=== PATIENT | female | born 1985 | race Caucasian/White ===

== ENCOUNTER 2017-10-31 13:20 | Emergency (ER) | payer OTHER ==
[2017-10-31] MEDS ORDERED: Bacitracin Zinc 1 Packet ONE (14:05)
[2017-10-31] MEDS ORDERED: Adacel (T-DAP) 0.5 ML VIAL ONE (14:23)
[2017-10-31 14:46] LABS: HIV (1/2) Antibody/Antigen Non-Reactive (NonReactive); HIV 1/2 INDEX 0.33 S/CO (<1.00); Hep C IgG Ab Non-Reactive (NonReactive); Hep C Index 0.09 S/CO (0-0.79)
[2017-10-31 15:32] LABS: Hep B Surf AB Reactive (NonReactive)
== END 2017-10-31 14:25 | disposition home or self-care (01) ==
LOC: ERS 13:20
DX: S10.91XA Abrasion of unspecified part of neck, initial encounter (principal); Z79.899 Other long term (current) drug therapy; Y04.0XXA Assault by unarmed brawl or fight, initial encounter
CPT/HCPCS: 36415; 86706; 86803; 87389; 90471; 90715